=== PATIENT | male | born 1975 | race Hispanic/Latino ===

== ENCOUNTER 2020-06-19 11:18 | Outpatient (CLI) | payer OTHER ==
--- NOTE | 2020-06-19 11:37 | RAD ---
EXAM: 2 views of the left femur HISTORY: Left hip impingement syndrome COMPARISON: None FINDINGS: There is no evidence of acute fracture or dislocation. No soft tissue swelling is seen. Mod erate degenerative changes are seen in the left hip. IMPRESSION: Moderate left hip degenerative changes without evidence of acute osseous abnormality.
== END 2020-06-19 11:19 | disposition home or self-care (01) ==
LOC: NAV RAD 11:18
PROVIDERS: ATTEND Family Medicine
DX: M25.852 Other specified joint disorders, left hip (principal); M16.12 Unilateral primary osteoarthritis, left hip